=== PATIENT | male | born 1930 | race Caucasian/White ===

== ENCOUNTER → 2016-08-01 | Outpatient (CLI) | payer OTHER, BC ==
[~2016-08-01] MED LIST: HYDROCHLOROTH12.5 M1 PO; HYTRIN 5 M5 MG/1 CA1 PO; IRON325 PO
== END ==
LOC: NUC 08:21
DX: Z96.652 Presence of left artificial knee joint (principal); Z85.46 Personal history of malignant neoplasm of prostate

== ENCOUNTER 2016-12-18 16:22 | Emergency (ER) | payer OTHER ==
[~2016-12-18] VITALS: Ht 172.7 cm; Wt 77.1 kg
--- NOTE | ~2016-12-18 | EKG ---
[facility] [place] [employer] [place] [address] ELECTROCARDIOGRAM REPORT Name: JENNIFER RODRIGUEZ Room #: DEP REZA [place]#: [id number] Admission: 12/18/16 Attend Phys: Discharge: 12/18/16 Date of : 30 Report #: [id number] THIS REPORT FOR: //name// [facility] ED Test Date: 2016-12-18 Test Time: 16:52:52 Pat Name: JENNIFER RODRIGUEZ Department: Room: Gender: Etl Architect: 89 : 1930 Requested By: Bharat Lua Order Number: [id number] MD: Yao Rust Measurements Intervals [place] Rate: 69 P: IN: QRS: 50 QRSD: 96 T: -6 QT: 352 QTc: 377 Interpretive Statements Afib/flut and V-paced complexes No further analysis attempted due to paced rhythm No previous ECG available for comparison Electronically Signed On 12-22-2016 7:56:17 CDT by Yao Rust [email or web address] <ELECTRONICALLY SIGNED> By: Yao Rust MD, [facility] 12/22/16 [id number] Yao Rust MD, FACC /EPI
[2016-12-18] MEDS ORDERED: ULTRAM 50MG TAB50 MG PO (16:34)
[2016-12-18] MEDS ORDERED: LASIX 40 MG TAB40 M2 PO (16:35)
[2016-12-18] MEDS ORDERED: ELIQUIS2.5 MG PO (16:35)
[2016-12-18] MEDS ORDERED: LIPITOR10 MG PO (16:36)
[2016-12-18] MEDS ORDERED: ASPIR 8181 MG PO (16:36)
[2016-12-18] MEDS ORDERED: CASODEX 50 MG T50 M1 PO (16:36)
[2016-12-18] MEDS ORDERED: IRON325 PO (16:37)
[2016-12-18 18:20] VITALS: BP 131/65
== END 2016-12-18 18:51 | disposition home or self-care (01) ==
LOC: ER 16:22
DX: S01.01XA Laceration without foreign body of scalp, initial encounter (principal); I10 Essential (primary) hypertension; Z95.0 Presence of cardiac pacemaker; W01.0XXA Fall on same level from slipping, tripping and stumbling without subsequent striking against object, initial encounter; Y93.89 Activity, other specified; Y92.89 Other specified places as the place of occurrence of the external cause; Y99.8 Other external cause status

== ENCOUNTER → 2017-01-21 | Outpatient (CLI) | payer OTHER, BC ==
[~2017-01-21] MED LIST changes: +ASPIR 8181 MG PO; +CASODEX 50 MG T50 M1 PO; +ELIQUIS2.5 MG PO; +LASIX 40 MG TAB40 M2 PO; +LIPITOR10 MG PO; +ULTRAM 50MG TAB50 MG PO
== END ==
LOC: CAT 16:40
DX: S09.8XXA Other specified injuries of head, initial encounter (principal); W19.XXXA Unspecified fall, initial encounter; Y93.89 Activity, other specified; Y92.89 Other specified places as the place of occurrence of the external cause; Y99.8 Other external cause status

== ENCOUNTER 2018-08-18 16:30 | Emergency (ER) | payer OTHER ==
[~2018-08-18] VITALS: Ht 177.8 cm; Wt 76.7 kg
[2018-08-18 18:20] LABS: URINE BILIRUBIN NEGATIVE (Negative); URINE BLOOD 3+ (Negative); URINE CLARITY SL CLOUDY; URINE COLOR YELLOW; URINE GLUCOSE-RANDOM* NEGATIVE (Negative); URINE KETONES NEGATIVE (Negative); URINE LEUKOCYTES-REFLEX TRACE (Negative); URINE NITRITE-REFLEX NEGATIVE (Negative); URINE PROTEIN (DIPSTICK) TRACE (Negative); URINE UROBILINOGEN 0.2 E.U./dl (0.2-1.0)
[2018-08-18 18:30] LABS: BACTERIA-REFLEX 1-9 Few /HPF (None Seen); CASTS None Seen /LPF (None Seen); CRYSTALS None Seen /LPF (None Seen); SQUAMOUS None Seen /LPF (0-3); URINE RBC >20 Many /HPF (0-2); URINE WBC-REFLEX 0-5 Rare /HPF (0-5)
[2018-08-18 19:26] LABS: CALCIUM 9.1 mg/dL (8.5-10.1); CREATININE 1.1 mg/dL (0.7-1.3); POTASSIUM 4.2 mmol/L (3.5-5.1)
[2018-08-18 20:08] VITALS: BP 128/61
== END 2018-08-18 20:09 | disposition home or self-care (01) ==
LOC: ER 16:30
PROVIDERS: Emergency Medicine; Physician Assistant
DX: T83.098A Other mechanical complication of other urinary catheter, initial encounter (principal); I10 Essential (primary) hypertension; Y84.8 Other medical procedures as the cause of abnormal reaction of the patient, or of later complication, without mention of misadventure at the time of the procedure; Y92.89 Other specified places as the place of occurrence of the external cause